=== PATIENT | male | born 2000 | race Two or more races ===

== ENCOUNTER 2023-08-17 15:37 | Emergency (ER) | payer MEDICAID, OTHER ==
[~2023-08-17] VITALS: Ht 177.8 cm; Wt 79.0 kg
[2023-08-17] MEDS ORDERED: IBUPROFEN 800 MG TAB PO ONE (17:30)
[2023-08-17] MEDS ORDERED: RIVAROXABAN 15 MG TAB PO ONE (18:00)
[2023-08-17] MEDS ORDERED: ACE3T PO (19:20)
[2023-08-17] MEDS ORDERED: RIV15T PO (19:20)
[2023-08-17 19:50] VITALS: BP 108/65; PULSE 59; RESP 16; TEMP 98; O2SAT 98
== END 2023-08-17 20:03 | disposition home or self-care (01) ==
LOC: ER 15:37
DX: I82.601 Acute embolism and thrombosis of unspecified veins of right upper extremity (principal); M79.601 Pain in right arm
CPT/HCPCS: 93971